=== PATIENT | female | born 1990 | race African-American/Black ===

== ENCOUNTER 2017-01-27 15:38 | Inpatient (IN) | payer OTHER ==
--- NOTE | ~2017-01-27 | HP ---
Unit #: [id number] #: [id number] Patient: LOUIS FREITAS [id number] [address] [place], [place] [address] [id number] I MR#: [id number] NAME: LOUIS FREITAS ROOM: 31752 Age: 26 Sex: F Admission Date: 01/27/2017 : 1990 Attending Physician: Garo Monae M.D. Primary Care Physician: [facility] HISTORY AND PHYSICAL CHIEF COMPLAINT Nausea, vomiting, abdominal pain. DISCUSSION This is a 26-year-old female who has a past medical history of gastroenteritis in 2003. She has an EGD and colonoscopy at that time which was negative. She presented to emergency room with chief complaint of having four days history of nausea, vomiting and abdominal pain which got progressively worse. She is unable to keep anything down. She has been vomiting many times. She described the pain sharp. She came in the ER. She was found to have abnormal LFT. AST 229, ALT 254. Bilirubin total 2.7. She underwent CT scan and ultrasound which was normal and eventually she had been admitted for further workup and evaluation. She denies fever, chills, blood in the stool, diarrhea, constipation or any other complaint. She denies dysuria, she denies headache, chest pain or any other complaint. PAST MEDICAL HISTORY 1. History of gastroenteritis on admission in June 2014. Had an EGD and colonoscopy which was negative. 2. History of with MRSA skin infection. ALLERGIES No known drug allergies. HOME MEDICATIONS She currently does not take any medication. FAMILY HISTORY Hypertension. SOCIAL HISTORY She denies smoking, she denies alcohol, she denies illicit drug use. REVIEW OF SYSTEMS Negative except history of presenting illness. PHYSICAL EXAMINATION GENERAL: 26-year-old female lying in the bed comfortably, complaining of severe upper abdominal pain. She is alert, awake, oriented x3. CURRENT VITAL SIGNS: Temperature 98.7, heart rate 117, respiratory rate 15, blood pressure 117/77. HEENT: Pupils equal, reactive to light and accommodation. Head is normocephalic, atraumatic. Unit #: [id number] #: [id number] Patient: LOUIS FREITAS NECK: Supple. No JVD. HEART: S1, S2. Regular rate and rhythm. LUNGS: Clear to auscultation bilaterally. No rhonchi, no wheezing. ABDOMEN: Soft. Diffuse upper abdominal tenderness. No guarding, no rigidity. EXTREMITIES: Inspection normal. No cyanosis, no clubbing, no edema. SKIN: No rash, warm. PSYCH: Normal mood and affect. NEURO: She is alert, oriented x4. Cranial nerves II-XII intact. Power 5/5. DIAGNOSTIC STUDIES LABORATORY: INR is 1.1, white count is 3.5, sodium 135, potassium 3.3, chloride 98, glucose 100, BUN 23, creatinine 1.1. AST 229, alkaline phos. 254, bilirubin total is 2.7. Amylase and lipase normal. White count 14, hemoglobin 15, hematocrit 47, platelet is 258. UA shows trace LE, positive nitrate, WBC 2-5. IMAGING: She has a CT scan of abdomen which is unremarkable. It shows fatty infiltration of liver. She had ultrasound of abdomen which is negative. ASSESSMENT AND PLAN 1. Nausea, vomiting, abdominal pain: Will admit the patient. 23 hour observation. IV Protonix, IV fluids, IV morphine, Zofran. Dr. Lora to evaluate. 2. Abnormal liver function tests: Will repeat hepatitis profile. Repeat LFT in the morning. 3. History of gastroenteritis in the past. 4. Questionable urinary tract infection: Will start on IV Rocephin. 5. Deep venous thrombosis prophylaxis: Place the patient on SCDs. Dictated by Rachel Duran TD: 01/28/2017 11:57 JOB #: [id number] HISTORY AND PHYSICAL Page 1 of 1 X X HISTORY AND PHYSICAL
--- NOTE | ~2017-01-27 | CT2 ---
[facility] A Service [facility] RADIOLOGY TEXT RESULTS PATIENT: LOUIS FREITAS LOCATION: [facility] 555 : 89 UNIT #: [id number] AGE: [address]: Garo Monae MD SEX: F ORDER DR: [id number] [address] [address] [id number] I MR#: [id number] Acc #: [id number] NAME: LOUIS FREITAS : 1990 SEX: F STUDY DATE/TIME: 01/27/2017 17:16 UNIT: CEDOF ROOM: 06707 STUDY DESCRIPTION: CT Abd and Pelv W Cont Attending Physician: Garo Monae M.D. Ordering Physician: Preeti Stinson M.D. Primary Care Physician: [facility] MEDICAL IMAGING REPORT This report is preliminary unless electronic signature is present EXAM CT abdomen and pelvis with IV contrast HISTORY Diffuse abdomen pain for 4 days. Nausea, vomiting. TECHNIQUE This CT examination was performed with one or more of the following radiation dose reduction techniques: automatic exposure control, adjustment of mA and/or kV according to patient size, and iterative reconstruction. FINDINGS CT abdomen and pelvis was performed with IV contrast. CT ABDOMEN: Diffuse fatty infiltration of the liver. No hepatic mass or biliary dilatation. Gallbladder, spleen, pancreas, kidneys, and adrenal glands are normal. Normal caliber abdominal aorta. Mild diffuse colonic diverticulosis. CT PELVIS: Normal appendix. No pelvic mass, adenopathy or bowel dilatation. The uterus and adnexa are unremarkable. Minimal free fluid is likely incidental and physiologic. IMPRESSION 1. No acute findings in the abdomen or pelvis. 2. Normal appendix. 3. Diffuse fatty infiltration of the liver. 4. Incidental minimal free fluid in the pelvis is likely physiologic. [facility] A Service [facility] RADIOLOGY TEXT RESULTS PATIENT: LOUIS FREITAS LOCATION: [facility] 555 : 89 UNIT #: [id number] AGE: [address]: Garo Monae MD SEX: F ORDER DR: Dictated by... Fredi Angulo M.D. THIS IS AN ELECTRONICALLY VERIFIED REPORT Fredi Angulo M.D. at 01/28/2017 11:29 PM SYMONE/alberto TD: 01/28/2017 11:37 JOB #: [id number] MEDICAL IMAGING REPORT Page 1 of 1 COPY
--- NOTE | ~2017-01-27 | DS ---
Unit #: [id number] #: [id number] Patient: LOUIS MANDUJANO [id number] [address] [address] [id number] [place]ro MR#: [id number] NAME: LOUIS MANDUJANO ROOM: 555 Age: 26 Sex: F Admission Date: 01/27/2017 : 1990 Discharge Date: 01/29/2017 Attending Physician: Ariana Espinoza M.D. Primary Care Physician: [facility] DISCHARGE SUMMARY PRINCIPAL DIAGNOSES 1. Acute hepatitis, likely viral in origin. 2. Nausea and vomiting, likely viral in origin. 3. Reactive leukocytosis. 4. Hypokalemia. CONSULTANTS Dr. Lora, gastroenterology. PROCEDURES PERFORMED EGD on 01/29/2017 which was reportedly normal. DIAGNOSTIC DATA IMAGING: CT scan of the abdomen and pelvis with contrast on 01/27/2017 without acute findings. Fatty infiltration of the liver noted. CLINICAL HISTORY/HOSPITAL COURSE Ms. Mandujano is a 26-year-old female who presented to the emergency department with complaints of abdominal pain, nausea and vomiting. In the emergency department she was found to have elevated LFTs with an AST of 229 and ALT 254. Bilirubin was also mildly elevated at 2.7. CT scan of the abdomen and pelvis, however, was unremarkable. The patient was placed in observation. Dr. Lora was consulted. The patient continued to have persistent nausea and vomiting and ultimately underwent EGD which was reportedly normal. On the day of discharge liver enzymes were trending down. AST was down to 197, ALT was 233 and bilirubin had normalized. Viral hepatitis panel is currently pending and will be followed up. The patient was otherwise stable and was discharged. DISCHARGE CONDITION Stable. DISPOSITION Discharge to home. DISCHARGE MEDICATIONS Tramadol 50 mg p.o. q.6 h. p.r.n. pain. DIET The patient was instructed to follow a regular diet. ACTIVITY Unit #: [id number] #: [id number] Patient: LOUIS MANDUJANO As tolerated. FOLLOWUP 1. The patient will follow up with [facility] in two weeks and needs a repeat CMP at that time. 2. Again, I will follow up on viral hepatitis panel and contact the patient if this is abnormal. Dictated by... Rachel Rose/arthur TD: 01/31/2017 09:02 JOB #: [id number] DISCHARGE SUMMARY Page 1 of 1 X Ariana Espinoza MD DISCHARGE SUMMARY
--- NOTE | ~2017-01-27 | US67 ---
[facility] A Service of [facility] RADIOLOGY TEXT RESULTS PATIENT: LOUIS FREITAS LOCATION: [facility] 555-01 : 89 UNIT #: [id number] AGE: [address]: Garo Monae MD SEX: F ORDER DR: [id number] [facility] [address] [facility] [facility]. [place], [place] [address] [id number] I MR#: [id number] Acc #: [id number] NAME: LOUIS FREITAS : 1990 SEX: F STUDY DATE/TIME: 01/27/2017 21:19 [facility] 96905 STUDY DESCRIPTION: US Gallbladder Attending Physician: Garo Monae M.D. Ordering Physician: Preeti Stinson M.D. Primary Care Physician: [facility] MEDICAL IMAGING REPORT This report is preliminary unless electronic signature is present EXAM Gallbladder ultrasound INDICATIONS Right upper quadrant pain, nausea and vomiting for 5 days. FINDINGS The liver is normal in echogenicity and size. There are no focal lesions. The portal vein is patent with flow into the liver. The common bile duct is 2 mm in diameter. The gallbladder is adequately distended and appears normal. The right kidney is 10.8 cm in length and appears normal. IMPRESSION Normal right upper quadrant ultrasound. Dictated by... Zac Diego M.D. THIS IS AN ELECTRONICALLY VERIFIED REPORT Zac Diego M.D. at 01/28/2017 9:55 PM FEL/psc TD: 01/28/2017 16:12 JOB #: [id number] MEDICAL IMAGING REPORT Page 1 of 1 COPY
--- NOTE | ~2017-01-27 | OR ---
Unit #: [id number] #: [id number] Patient: LOUIS FREITAS [id number] [address] [address] [id number] I MR#: [id number] NAME: LOUIS FREITAS ROOM: 555 Date of Procedure: 01/29/2017 Admission Date: 01/27/2017 Surgeon: Osei Lora M.D. : 1990 Attending Physician: Ariana Espinoza M.D. Primary Care Physician: [facility] OPERATIVE REPORT PREOPERATIVE DIAGNOSIS Upper abdominal pain along with nausea and vomiting. PROCEDURE PERFORMED Upper gastrointestinal endoscopy. POSTOPERATIVE DIAGNOSES Completely normal examination up to third part of duodenum. RECOMMENDATIONS No further evaluation is indicated. The patient is feeling better after treatment of her urinary tract infection with antibiotics. She can be discharged home from GI standpoint. SEDATION USED MAC. DESCRIPTION OF PROCEDURE Following detailed explanation of the potential risks and complications of an upper endoscopy, namely perforation, bleeding, and complication related to sedation, the patient was brought to GI lab and laid in the left lateral decubitus position. Lubricated tip of the Olympus video upper endoscope was passed through the bite block into the proximal esophagus under direct vision. The entire esophageal mucosa was examined and appeared normal. Z-line was nicely demarcated, there being no esophagitis or hiatus hernia. The scope was then advanced into the gastric cavity and the latter was insufflated. Mucosa of the fundus, body, and antrum was examined and appeared unremarkable. Pylorus was intubated with visualization of the normal duodenal bulb and second and third part of the duodenum. Upon withdrawal and retroflexion, incisura, cardia, and greater curve was examined and no additional findings were noted. The scope was then withdrawn in the distal esophagus. The entire esophageal mucosa was examined all the way up to pharynx. No additional findings were noted. The patient tolerated the procedure without any postprocedure complications. Dictated by... Rachel Scruggs/bashir Unit #: [id number] #: [id number] Patient: LOUIS FREITAS TD: 01/30/2017 22:38 JOB #: [id number] OPERATIVE REPORT Page 1 of 1 X Osei Lora MD PROCEDURE OPERATIVE NOTE
--- NOTE | ~2017-01-27 | CO ---
Unit #: [id number] #: [id number] Patient: LOUIS FREITAS [id number] [address] [address] [id number] I MR#: [id number] NAME: LOUIS FREITAS ROOM: 555 Age: 26 Sex: F Admission Date: 01/27/2017 : 1990 Attending Physician: Garo Monae M.D. Primary Care Physician: [facility] Consultation Date: 01/28/2017 CONSULTATION REPORT JOB NOTE: CC: [facility]. ATTENDING PHYSICIAN Dr. Garo Monae. PRIMARY CARE PHYSICIAN [facility]. REASON FOR CONSULTATION Nausea, vomiting, and abdominal pain. HISTORY OF PRESENT ILLNESS The patient is a 26-year-old female, who has presented with history of one week of nausea, vomiting, and upper abdominal pain. The pain is also present during nighttime, in fact she also has rather diffuse abdominal pain, which has been present for the same time. There is no history of any diarrhea or overt GI bleed in the form of hematemesis, melena, or hematochezia. Her appetite has been poor. The patient had a CT scan and ultrasound of the abdomen, which is unremarkable. PAST MEDICAL HISTORY Significant for history of gastroenteritis three years ago. PAST SURGICAL HISTORY Included a section complicated by MRSA infection. MEDICATIONS None. ALLERGIES No known drug allergies. FAMILY HISTORY Hypertension. No family history of colon, pancreatic cancer, or liver disease. SOCIAL HISTORY The patient does not smoke or drink alcohol, and does not have any illicit drug use. REVIEW OF SYSTEMS Detailed review of organ system does not reveal any recent weight loss. No history of fever, chills, or rigors. No history of headache, seizures, chest pain, or syncope. No history of cough, expectoration, or Unit #: [id number] #: [id number] Patient: LOUIS FREITAS hemoptysis. No history of dysuria, hematuria, or pyuria. No history of focal seizures or extremity weakness. PHYSICAL EXAMINATION GENERAL: She is alert and oriented, appears comfortable. VITAL SIGNS: Stable with a temperature of 97.4, pulse is 75 per minute and regular, respiratory rate is 18 per minute, and blood pressure is 102/62. She weighs 170 pounds, which is close to her baseline weight. HEENT: She has no pallor, icterus, lymphadenopathy, or peripheral edema. CARDIOVASCULAR: Normal heart sounds. No murmurs on auscultation. LUNGS: Reveals normal breath sounds. Good air entry. ABDOMEN: Soft with minimal epigastric tenderness. Liver and spleen are not palpable. Bowel sounds normal. The patient's hernial sites were also normal. DIAGNOSTIC STUDIES LABORATORY RESULTS: Shows a leukocytosis with a white count of 14.8 with left shift, hemoglobin between 14 to 15, and platelet count of 258. INR is 1.1. Serum chemistry shows a BUN and creatinine, which is normal. Potassium of 3.3. Her total bilirubin was 2.7 yesterday and 1.7 today. There is mild elevation of AST and ALT of 229 and 254 respectively. Alkaline phosphatase 90. Amylase and lipase were also normal. IMAGING STUDIES: Ultrasound and CT scan of the abdomen are normal. There being no biliary ductal dilation nor any gallstones. CLINICAL IMPRESSION The differential diagnosis of the patient's epigastric pain includes peptic ulcer disease, and common bile duct stone, even though the CT is negative. Her urinalysis also suggests urinary tract infection. MANAGEMENT PLAN A diagnostic upper endoscopy tomorrow and repeat CBC, CMP, and LFTs tomorrow. The patient is already started on Rocephin intravenously by Dr. Monae for urinary tract infection. Thank you very much for asking me to see this pleasant woman. I appreciate the consult. Dictated by... Rachel Scruggs/bashir TD: 01/29/2017 04:01 JOB #: [id number] CONSULTATION REPORT Page 1 of 1 X Osei Lora MD CONSULTATION REPORT
[2017-01-27 14:23] LABS: URINE SOURCE CLEAN CATCH
[2017-01-27 14:27] LABS: BASOPHIL# 0.1 X10e3 (0-0.3); BASOPHIL% 0.7 % (0-2.5); HEMATOCRIT 47.6 % (35.0-45.0); HEMOGLOBIN 15.5 gm/dL (12.0-16.0); LYMPHOCYTE# 1.9 X10e3 (1.0-3.5); LYMPHOCYTE% 12.7 % (17.0-45.0); MEAN CELL VOLUME 83.2 FL (83-96); MEAN CORPUSCULAR HEMOGLOBIN 27.2 PG (28-34); MEAN CORPUSCULAR HGB CONC 32.6 g/dL (30-36); MEAN PLATELET VOLUME 10.6 FL (6.5-11.5); MONOCYTE# 1.1 X10e3 (0-1.0); MONOCYTE% 7.4 % (3.0-12.0); NEUTROPHIL# 11.7 X10e3 (1.5-7.1); NEUTROPHIL% 79.2 % (40-75); PLATELET COUNT 258 X10e3 (140-420); RED BLOOD COUNT 5.72 X10e (3.90-5.30); RED CELL DISTRIBUTION WIDTH 14.8 % (11.0-15.5); WHITE BLOOD COUNT 14.8 X10e3 (4.0-10.5)
[2017-01-27 14:27] LABS: URINE APPEARANCE CLEAR; URINE BLOOD NEG (NEG); URINE COLOR DK YELLOW; URINE GLUCOSE NEG (NEG); URINE KETONE 1+ (NEG); URINE LEUKOCYTE ESTERASE TRACE (NEG); URINE NITRATE POS (NEG); URINE PROTEIN 2+ (NEG); URINE SPECIFIC GRAVITY 1.036 (1.003-1.035)
[2017-01-27 14:29] LABS: URINE BACTERIA AUWI NEG (NEGATIVE); URINE SQUAMOUS EPITHELIAL CELL OCC /[HPF]
[2017-01-27 14:33] LABS: CULTURE INDICATED? NO; URINE BILIRUBIN NEG (NEG)
[2017-01-27 14:35] LABS: DIFF IND NO
[2017-01-27 15:06] LABS: ALBUMIN SERUM 4.9 g/dL (3.5-5.0); BILIRUBIN,INDIRECT 1.7 mg/dL (0.0-0.9); BILIRUBIN,TOTAL 2.7 mg/dL (0.2-2.0); CALCIUM SERUM 10.2 mg/dL (8.4-10.2); GLOM FILT RATE Estimated 89.5 mL/min (>60); POTASSIUM 3.3 mmol/L (3.5-5.1); PROTEIN TOTAL SERUM 9.1 g/dL (6.0-8.3)
[~2017-01-27 15:38] MED LIST: APAP325 M1 PO; CIPRO XR 500 M500 MG PO; DOXYCYCLINE150 MG PO; NO MEDICATIONS; OMEPRAZOLE20 M2 PO
[2017-01-27 19:55] LABS: INR 1.1; PROTHROMBIN TIME (PATIENT) 11.4 SECONDS (9.6-11.5)
[2017-01-27] MEDS ORDERED: NO MEDICATIONS (22:41)
[2017-01-28 05:37] LABS: BASOPHIL% 0.3 % (0-2.5); EOSINOPHIL% 0.2 % (0.0-7.0); HEMATOCRIT 43.7 % (35.0-45.0); HEMOGLOBIN 14.2 gm/dL (12.0-16.0); LYMPHOCYTE# 1.8 X10e3 (1.0-3.5); LYMPHOCYTE% 15.6 % (17.0-45.0); MEAN CORPUSCULAR HEMOGLOBIN 27.3 PG (28-34); MEAN CORPUSCULAR HGB CONC 32.5 g/dL (30-36); MEAN PLATELET VOLUME 10.7 FL (6.5-11.5); NEUTROPHIL# 8.5 X10e3 (1.5-7.1); NEUTROPHIL% 74.9 % (40-75); PLATELET COUNT 216 X10e3 (140-420); RED CELL DISTRIBUTION WIDTH 14.5 % (11.0-15.5); WHITE BLOOD COUNT 11.3 X10e3 (4.0-10.5)
[2017-01-28 05:50] LABS: DIFF IND NO
[2017-01-28 06:13] LABS: ALBUMIN SERUM 4.1 g/dL (3.5-5.0); BILIRUBIN,TOTAL 1.7 mg/dL (0.2-2.0); BUN/CREATININE RATIO 23.75; CALCIUM SERUM 9.5 mg/dL (8.4-10.2); CREATININE SERUM 0.8 mg/dL (0.6-1.4); GLOM FILT RATE Estimated 117.2 mL/min (>60); POTASSIUM 3.2 mmol/L (3.5-5.1); PROTEIN TOTAL SERUM 7.7 g/dL (6.0-8.3)
[2017-01-29 07:44] LABS: BASOPHIL% 0.3 % (0-2.5); EOSINOPHIL% 0.2 % (0.0-7.0); HEMATOCRIT 42.6 % (35.0-45.0); LYMPHOCYTE# 1.2 X10e3 (1.0-3.5); LYMPHOCYTE% 11.6 % (17.0-45.0); MEAN CELL VOLUME 84.1 FL (83-96); MEAN CORPUSCULAR HEMOGLOBIN 27.7 PG (28-34); MEAN CORPUSCULAR HGB CONC 32.9 g/dL (30-36); MEAN PLATELET VOLUME 10.4 FL (6.5-11.5); MONOCYTE# 0.7 X10e3 (0-1.0); MONOCYTE% 6.4 % (3.0-12.0); NEUTROPHIL# 8.6 X10e3 (1.5-7.1); NEUTROPHIL% 81.5 % (40-75); PLATELET COUNT 197 X10e3 (140-420); RED BLOOD COUNT 5.06 X10e (3.90-5.30); RED CELL DISTRIBUTION WIDTH 14.3 % (11.0-15.5); WHITE BLOOD COUNT 10.6 X10e3 (4.0-10.5)
[2017-01-29 07:45] LABS: DIFF IND NO
[2017-01-29 07:57] LABS: BILIRUBIN,TOTAL 1.1 mg/dL (0.2-2.0); BUN/CREATININE RATIO 12.5; CALCIUM SERUM 9.3 mg/dL (8.4-10.2); CREATININE SERUM 0.8 mg/dL (0.6-1.4); GLOM FILT RATE Estimated 117.2 mL/min (>60); MAGNESIUM 2.1 mg/dL (1.6-3.0); POTASSIUM 3.5 mmol/L (3.5-5.1); PROTEIN TOTAL SERUM 7.1 g/dL (6.0-8.3)
[2017-01-29] MEDS ORDERED: TRAMADOL HCL50 M2 PO (21:41)
[2017-01-30 16:01] LABS: HA AB IGM (HEPPAN) Nonreactive (()); HB CORE AB IGM (HEPPAN) Nonreactive (Nonreactive); HB S AG (HEPPAN) Nonreactive (Nonreactive); HEP C AB (HEPPAN) Nonreactive (Nonreactive)
== END 2017-01-29 23:05 | disposition home or self-care (01) | DRG 442 ==
LOC: CED 15:38 → CEDOF 23:25 → C5B 01-28 18:32
PROVIDERS: Emergency Medicine; Family Medicine; Internal Medicine; Internal Medicine Gastroenterology
PROC: 0DJ08ZZ Inspection of Upper Intestinal Tract, Via Natural or Artificial Opening Endoscopic (ICD-10-PCS; principal; 2017-01-29 20:16)
DX: B17.9 Acute viral hepatitis, unspecified (principal); N39.0 Urinary tract infection, site not specified; R11.2 Nausea with vomiting, unspecified; Z86.14 Personal history of Methicillin resistant Staphylococcus aureus infection; R10.13 Epigastric pain; R74.0 Nonspecific elevation of levels of transaminase and lactic acid dehydrogenase [LDH]; D72.829 Elevated white blood cell count, unspecified; E87.6 Hypokalemia
CPT/HCPCS: 36415; 74177; 76705; 80048; 80053; 80074; 80076; 81003; 82150; 83690; 83735; 84703; 85025; 85610; 96361; 96374; 96375; 96376; 99285; C9113; J0696; J1885; J2270; J2405; Q9967

== ENCOUNTER 2017-01-31 14:51 | Emergency (ER) | payer OTHER ==
[2017-01-31 13:02] LABS: BASOPHIL% 0.4 % (0-2.5); HEMOGLOBIN 13.5 gm/dL (12.0-16.0); LYMPHOCYTE# 1.1 X10e3 (1.0-3.5); LYMPHOCYTE% 8.6 % (17.0-45.0); MEAN CELL VOLUME 84.5 FL (83-96); MEAN CORPUSCULAR HEMOGLOBIN 27.1 PG (28-34); MEAN CORPUSCULAR HGB CONC 32.1 g/dL (30-36); MEAN PLATELET VOLUME 10.9 FL (6.5-11.5); MONOCYTE# 0.3 X10e3 (0-1.0); MONOCYTE% 2.6 % (3.0-12.0); NEUTROPHIL% 88.4 % (40-75); PLATELET COUNT 198 X10e3 (140-420); RED BLOOD COUNT 4.97 X10e (3.90-5.30); RED CELL DISTRIBUTION WIDTH 14.4 % (11.0-15.5); WHITE BLOOD COUNT 12.4 X10e3 (4.0-10.5)
[2017-01-31 13:04] LABS: DIFF IND NO
[2017-01-31 13:30] LABS: ALBUMIN SERUM 4.2 g/dL (3.5-5.0); BILIRUBIN, DIRECT 0.2 mg/dL (0.0-0.2); BILIRUBIN,INDIRECT 0.7 mg/dL (0.0-0.9); BILIRUBIN,TOTAL 0.9 mg/dL (0.2-2.0); CALCIUM SERUM 9.6 mg/dL (8.4-10.2); GLOM FILT RATE Estimated 89.5 mL/min (>60); POTASSIUM 3.4 mmol/L (3.5-5.1); PROTEIN TOTAL SERUM 7.6 g/dL (6.0-8.3)
[2017-01-31 13:58] LABS: URINE SOURCE CLEAN CATCH
[2017-01-31 14:11] LABS: URINE APPEARANCE CLEAR; URINE BILIRUBIN NEG (NEG); URINE BLOOD 3+ (NEG); URINE COLOR DK YELLOW; URINE GLUCOSE NEG (NEG); URINE KETONE 1+ (NEG); URINE LEUKOCYTE ESTERASE 1+ (NEG); URINE NITRATE NEG (NEG); URINE PH 6.5 (5-8); URINE PROTEIN TRACE (NEG); URINE SPECIFIC GRAVITY 1.024 (1.003-1.035)
[2017-01-31 14:27] LABS: URBCS1 AUWI INNUM /[HPF] (0-2); URINE BACTERIA AUWI NEG (NEGATIVE); URINE SQUAMOUS EPITHELIAL CELL OCC /[HPF]
[2017-01-31 14:28] LABS: CULTURE INDICATED? NO
[~2017-01-31 14:51] MED LIST changes: +TRAMADOL HCL50 M2 PO
== END 2017-01-31 16:00 | disposition home or self-care (01) ==
LOC: CED 14:51
DX: R10.9 Unspecified abdominal pain (principal); R11.2 Nausea with vomiting, unspecified; K72.90 Hepatic failure, unspecified without coma; K75.9 Inflammatory liver disease, unspecified
CPT/HCPCS: 36415; 80048; 80076; 81003; 83690; 84703; 85025; 96361; 96365; 96374; 96375; 99284; J2270; J2765

== ENCOUNTER 2017-02-16 13:30 | Emergency (ER) | payer OTHER ==
[2017-02-16 13:36] LABS: URINE SOURCE CLEAN CATCH
[2017-02-16 13:40] LABS: URINE APPEARANCE CLOUDY; URINE BLOOD NEG (NEG); URINE COLOR DK YELLOW; URINE GLUCOSE NEG (NEG); URINE KETONE 1+ (NEG); URINE LEUKOCYTE ESTERASE TRACE (NEG); URINE NITRATE NEG (NEG); URINE PH 5.5 (5-8); URINE PROTEIN 2+ (NEG); URINE SPECIFIC GRAVITY 1.041 (1.003-1.035)
[2017-02-16 13:41] LABS: BASOPHIL# 0.1 X10e3 (0-0.3); BASOPHIL% 0.6 % (0-2.5); EOSINOPHIL% 0.1 % (0.0-7.0); HEMATOCRIT 45.5 % (35.0-45.0); HEMOGLOBIN 14.7 gm/dL (12.0-16.0); LYMPHOCYTE# 1.8 X10e3 (1.0-3.5); MEAN CELL VOLUME 85.2 FL (83-96); MEAN CORPUSCULAR HEMOGLOBIN 27.5 PG (28-34); MEAN CORPUSCULAR HGB CONC 32.3 g/dL (30-36); MEAN PLATELET VOLUME 10.5 FL (6.5-11.5); MONOCYTE# 0.5 X10e3 (0-1.0); NEUTROPHIL# 9.4 X10e3 (1.5-7.1); NEUTROPHIL% 80.3 % (40-75); PLATELET COUNT 257 X10e3 (140-420); RED BLOOD COUNT 5.34 X10e (3.90-5.30); RED CELL DISTRIBUTION WIDTH 15.2 % (11.0-15.5); WHITE BLOOD COUNT 11.7 X10e3 (4.0-10.5)
[2017-02-16 13:42] LABS: CULTURE INDICATED? YES; DIFF IND NO; URINE BACTERIA AUWI 2+ (NEGATIVE); URINE SQUAMOUS EPITHELIAL CELL MANY /[HPF]
[2017-02-16 14:00] LABS: URINE BILIRUBIN POS (NEG)
[2017-02-16 14:01] LABS: U HYALINE CASTS AUWI 0-2 /[LPF]; URINE CRYSTALS CALCIUM OXALATE /[HPF]; URINE MUCUS PRESENT
[2017-02-16 14:11] LABS: ALBUMIN SERUM 4.8 g/dL (3.5-5.0); BILIRUBIN, DIRECT 0.2 mg/dL (0.0-0.2); BILIRUBIN,INDIRECT 0.9 mg/dL (0.0-0.9); BILIRUBIN,TOTAL 1.1 mg/dL (0.2-2.0); BUN/CREATININE RATIO 12.22; CALCIUM SERUM 10.5 mg/dL (8.4-10.2); CREATININE SERUM 0.9 mg/dL (0.6-1.4); GLOM FILT RATE Estimated 101.6 mL/min (>60); POTASSIUM 3.3 mmol/L (3.5-5.1); PROTEIN TOTAL SERUM 8.8 g/dL (6.0-8.3)
== END 2017-02-16 17:15 | disposition home or self-care (01) ==
LOC: CED 13:30
PROVIDERS: Emergency Medicine
DX: N30.00 Acute cystitis without hematuria (principal); R10.84 Generalized abdominal pain
CPT/HCPCS: 36415; 80048; 80076; 81003; 82150; 83690; 84703; 85025; 87086; 96361; 96374; 96375; 99284; J2270; J2405

== ENCOUNTER 2017-03-11 16:30 | Emergency (ER) | payer OTHER ==
--- NOTE | ~2017-03-11 | CT2 ---
[facility] A Service of [facility] RADIOLOGY TEXT RESULTS PATIENT: LOUIS FREITAS LOCATION: [facility] : [birth year] UNIT #: [id number] AGE: [address]: Papito Valentino MD SEX: F ORDER DR: [id number] [address] [facility]. [place], [place] [address] [id number] MR#: [id number] Acc #: [id number] NAME: LOUIS FREITAS : 1990 SEX: F STUDY DATE/TIME: 03/11/2017 21:35 UNIT: AGA ROOM: STUDY DESCRIPTION: CT Abd and Pelv W Cont Attending Physician: Papito Valentino M.D. Ordering Physician: Papito Valentino M.D. Primary Care Physician: [facility] MEDICAL IMAGING REPORT This report is preliminary unless electronic signature is present EXAM CT scan of the abdomen and pelvis with contrast 03/11/2017 HISTORY Abdomen pain generalized for 2 days with vomiting. TECHNIQUE Spiral CT was performed through the abdomen and pelvis following intravenous contrast administration only as per clinician request. This CT exam was performed with one or more of the following radiation dose reduction techniques: automatic exposure control, adjustment of mA and/or kV according to patient size, and iterative reconstruction. FINDINGS Abdomen: Exam is somewhat limited by the lack of oral contrast. The liver, spleen, pancreas, gallbladder and biliary tree, adrenal glands and kidneys are normal. Pelvis: The gut, mesenteric and abldemar structures are normal. There is minimal free fluid in the pelvis. The lung bases are normal. IMPRESSION Exam limited by the lack of oral contrast. Otherwise negative CT scan of the abdomen and pelvis. Dictated by... Davis Owens M.D. [facility] A Service [facility] RADIOLOGY TEXT RESULTS PATIENT: LOUIS FREITAS LOCATION: [facility] : 88 UNIT #: [id number] AGE: [address]: Papito Valentino MD SEX: F ORDER DR: THIS IS AN ELECTRONICALLY VERIFIED REPORT Davis Owens M.D. at 03/13/2017 10:42 AM Abelardo TD: 03/12/2017 08:49 JOB #: [id number] MEDICAL IMAGING REPORT Page 1 of 1 COPY
[2017-03-11 20:28] LABS: BASOPHIL# 0.1 X10e3 (0-0.3); BASOPHIL% 0.9 % (0-2.5); EOSINOPHIL% 0.1 % (0.0-7.0); HEMATOCRIT 45.7 % (35.0-45.0); HEMOGLOBIN 14.8 gm/dL (12.0-16.0); LYMPHOCYTE# 1.4 X10e3 (1.0-3.5); LYMPHOCYTE% 9.7 % (17.0-45.0); MEAN CELL VOLUME 84.7 FL (83-96); MEAN CORPUSCULAR HEMOGLOBIN 27.5 PG (28-34); MEAN CORPUSCULAR HGB CONC 32.5 g/dL (30-36); MEAN PLATELET VOLUME 10.7 FL (6.5-11.5); MONOCYTE# 0.8 X10e3 (0-1.0); MONOCYTE% 5.1 % (3.0-12.0); NEUTROPHIL# 12.5 X10e3 (1.5-7.1); NEUTROPHIL% 84.2 % (40-75); PLATELET COUNT 299 X10e3 (140-420); RED BLOOD COUNT 5.39 X10e (3.90-5.30); RED CELL DISTRIBUTION WIDTH 14.8 % (11.0-15.5); WHITE BLOOD COUNT 14.9 X10e3 (4.0-10.5)
[2017-03-11 20:30] LABS: DIFF IND NO
[2017-03-11 20:51] LABS: ALBUMIN SERUM 4.9 g/dL (3.5-5.0); ALKALINE PHOSPHATASE 83 U/L (32-92); ALT (SGPT) 104 U/L (10-40); AMYLASE 17 U/L (0-46); AST (SGOT) 111 U/L (10-42); BILIRUBIN, DIRECT 0.4 mg/dL (0.0-0.2); BILIRUBIN,INDIRECT 1.5 mg/dL (0.0-0.9); BILIRUBIN,TOTAL 1.9 mg/dL (0.2-2.0); BLOOD UREA NITROGEN 19 mg/dL (9-23); BUN/CREATININE RATIO 17.27; CALCIUM SERUM 10.3 mg/dL (8.4-10.2); CARBON DIOXIDE 26 mmol/L (22-31); CHLORIDE 98 mmol/L (100-111); CREATININE SERUM 1.1 mg/dL (0.6-1.4); GLOM FILT RATE Estimated 79.7 mL/min (>60); GLUCOSE FASTING 96 mg/dL (70-110); LIPASE 15 U/L (22-51); SODIUM 138 mmol/L (135-145)
[2017-03-11 20:54] LABS: ALCOHOL BLOOD <5 mg/dL (0)
[2017-03-11 21:22] LABS: URINE SOURCE CLEAN CATCH
[2017-03-11 21:34] LABS: URINE APPEARANCE CLEAR; URINE BLOOD NEG (NEG); URINE COLOR DK YELLOW; URINE GLUCOSE NEG (NEG); URINE KETONE TRACE (NEG); URINE LEUKOCYTE ESTERASE TRACE (NEG); URINE NITRATE POS (NEG); URINE PH 5.5 (5-8); URINE PROTEIN TRACE (NEG); URINE SPECIFIC GRAVITY 1.035 (1.003-1.035)
[2017-03-11 21:37] LABS: CULTURE INDICATED? YES; URINE BACTERIA AUWI 1+ (NEGATIVE); URINE SQUAMOUS EPITHELIAL CELL NONE SEEN /[HPF]
[2017-03-11 21:45] LABS: URINE BILIRUBIN NEG (NEG)
[2017-03-11 22:47] LABS: AMPHETAMINE NEG (NEG); BARBITURATES NEG (NEG); BENZODIAZEPINES NEG (NEG); COCAINE NEG (NEG); MARIJUANA POS (NEG); OPIATES NEG (NEG); TRICYCLIC ANTIDEPRESSANTS NEG (NEG); U METHADONE NEG (NEG)
== END 2017-03-12 00:37 | disposition left against medical advice (07) ==
LOC: CED 16:30
PROVIDERS: Emergency Medicine
DX: R10.84 Generalized abdominal pain (principal); R11.2 Nausea with vomiting, unspecified
CPT/HCPCS: 36415; 74177; 80048; 80076; 80307; 81003; 82150; 83690; 84703; 85025; 87086; 96361; 96372; 96374; 96375; 99284; G0480; J0500; J1885; J2405; J2765; Q9967